=== PATIENT | male | born 1945 | race Caucasian/White ===

== ENCOUNTER 2018-11-21 15:04 | Inpatient (IN) ==
[2018-11-21] MEDS ORDERED: Ipratropium/Albuterol Neb 3 ML IH ONE (15:12)
[2018-11-21] MEDS ORDERED: 0.9 % Sodium Chloride 1,000 ML IVC ONE ×2 (15:12→15:56)
[2018-11-21] MEDS ORDERED: methylPREDNISolone 125 MG/2 ML VIAL IVP ONE (15:12)
[2018-11-21 15:40] LABS: Basophils % 0.1 %; Hematocrit 43.6 % (37.5-50.1); Hemoglobin 14.1 g/dL (12.9-16.9); Lymphocytes # 1.8 K/mcL (0.6-4.6); Lymphocytes % 9.8 %; Mean Corpuscular HGB Conc 32.3 g/dL (31.6-35.5); Mean Corpuscular Hemoglobin 29.1 pg (28.0-33.3); Mean Corpuscular Volume 90.1 fL (83.0-100.0); Mean Platelet Volume 10.6 fL (9.4-12.4); Monocytes # 1.1 K/mcL (0.0-1.3); Monocytes % 6.2 %; Neutrophils # 15.2 K/mcL (1.6-8.9); Platelet Count 349 K/mcL (140-400); Red Blood Count 4.84 M/mcL (4.19-5.50); Segmented Neutrophils % 82.9 %; White Blood Count 18.4 K/mcL (4.3-11.1)
[2018-11-21] MEDS ORDERED: Piperacillin/Tazobactam 3.375 GM in Water for inj. (sterile) 20 ML IVP ONE (15:55)
[2018-11-21] MEDS ORDERED: Azithromycin 500 MG in 0.9 % Sodium Chloride 250 ML IVPB ONE (15:55)
[2018-11-21] MEDS ORDERED: 0.9 % Sodium Chloride 500 ML IVC ONE (15:57)
[2018-11-21 16:02] LABS: BUN/Creatinine Ratio 16 (6-26); Blood Urea Nitrogen 19 mg/dL (8-23); Calcium 9.9 mg/dL (8.6-10.3); Carbon Dioxide 23 mEq/L (23-29); Chloride 102 mEq/L (98-107); Glucose 132 mg/dL (70-105); Osmolality,Calculated 288 (280-300); Potassium 3.3 mEq/L (3.5-5.1); Sodium 137 mEq/L (136-145); eGFR For African Americans > 60 (> 60); eGFR For Non-African Americans 59 (> 60)
[2018-11-21 16:03] LABS: Troponin I 0.03 ng/mL (< 0.04)
[2018-11-21] MEDS ORDERED: Ondansetron 4 MG/2 ML VIAL IVP PRN (16:50)
[2018-11-21] MEDS ORDERED: Naloxone 0.4 MG/ML INJ IVP PRN (16:50)
[2018-11-21] MEDS ORDERED: 0.9 % Sodium Chloride 1,000 ML IVC SCH (17:00)
[2018-11-21] MEDS ORDERED: *HR* LORazepam 2 MG/ML VIAL IVP PRN (17:23)
[2018-11-21] MEDS ORDERED: Acetaminophen 325 MG TABLET PO PRN (17:24)
[2018-11-21] MEDS: Famotidine 20 MG TABLET PO SCH (20:28)
[2018-11-21] MEDS: *HR* Heparin 5,000 UNIT/ML VIAL SQ SCH (20:28)
[2018-11-21] MEDS: Ipratropium/Albuterol Neb 3 ML IH SCH ×2 (20:40→23:58)
[2018-11-21] MEDS ORDERED: Acetaminophen IV 1,000 MG/100 ML INFUS..BTL IVPB ONE (20:55)
[2018-11-21] MEDS ORDERED: rOPINIRole 1 MG TABLET PO PRN (22:12)
[2018-11-21] MEDS: Piperacillin/Tazobactam 3.375 GM in 0.9 % Sodium Chloride Mini Bag 100 ML IVPB SCH (22:56)
[2018-11-22 00:43] LABS: Adenovirus Not Detected (Not Detect); Bordetella Pertussis Not Detected (Not Detect); Chlamydophila pneumoniae Not Detected (Not Detect); Coronavirus 229E Not Detected (Not Detect); Coronavirus HKU1 Not Detected (Not Detect); Coronavirus NL63 Not Detected (Not Detect); Coronavirus OC43 Not Detected (Not Detect); Human Metapneumovirus Not Detected (Not Detect); Human Rhinovirus/Enterovirus Not Detected (Not Detect); Influenza A Subtype 2009 H1 Not Detected (Not Detect); Influenza A Untypeable Not Detected (Not Detect); Influenza B Not Detected (Not Detect); Mycoplasma pneumoniae Not Detected (Not Detect); Parainfluenza Virus 1 Not Detected (Not Detect); Parainfluenza Virus 2 Not Detected (Not Detect); Parainfluenza Virus 3 Not Detected (Not Detect); Parainfluenza Virus 4 Not Detected (Not Detect); Respiratory Syncytial Virus Not Detected (Not Detect)
[2018-11-22 02:29] LABS: Basophils % 0.1 %; Hematocrit 34.8 % (37.5-50.1); Immature Granulocytes % 1.4 % (0-4); Lymphocytes # 0.2 K/mcL (0.6-4.6); Lymphocytes % 1.8 %; Mean Corpuscular HGB Conc 32.2 g/dL (31.6-35.5); Mean Corpuscular Hemoglobin 28.7 pg (28.0-33.3); Mean Corpuscular Volume 89.2 fL (83.0-100.0); Mean Platelet Volume 10.8 fL (9.4-12.4); Monocytes # 0.5 K/mcL (0.0-1.3); Monocytes % 3.8 %; Neutrophils # 11.6 K/mcL (1.6-8.9); Platelet Count 265 K/mcL (140-400); Red Cell Distribution Width 14.1 % (11.5-14.5); Segmented Neutrophils % 92.9 %; White Blood Count 12.5 K/mcL (4.3-11.1)
[2018-11-22 02:35] LABS: Hemoglobin 11.2 g/dL (12.9-16.9)
[2018-11-22 02:41] LABS: BUN/Creatinine Ratio 17 (6-26); Blood Urea Nitrogen 18 mg/dL (8-23); Calcium 8.7 mg/dL (8.6-10.3); Carbon Dioxide 20 mEq/L (23-29); Chloride 109 mEq/L (98-107); Glucose 239 mg/dL (70-105); Magnesium 1.5 mg/dL (1.6-2.6); Osmolality,Calculated 292 (280-300); Potassium 3.3 mEq/L (3.5-5.1); Sodium 136 mEq/L (136-145); eGFR For African Americans > 60 (> 60); eGFR For Non-African Americans > 60 (> 60)
[2018-11-22] MEDS ORDERED: Potassium Chloride 20 MEQ, Lidocaine 1% 2 ML in 0.9 % Sodium Chloride 250 ML IVPB ONE (03:14)
[2018-11-22] MEDS ORDERED: Magnesium Oxide 400 MG TABLET PO SCH ×2 (03:21→09:00)
[2018-11-22] MEDS: Ipratropium/Albuterol Neb 3 ML IH SCH ×2 (03:43→07:51)
[2018-11-22] MEDS: MethylPREDNISolone 40 MG/ML VIAL IVP SCH ×2 (04:54→15:06)
[2018-11-22] MEDS: *HR* Heparin 5,000 UNIT/ML VIAL SQ SCH (06:08)
[2018-11-22] MEDS ORDERED: Potassium Chloride Elixir 20 MEQ/15 ML UDC PO SCH (07:30)
[2018-11-22] MEDS: Piperacillin/Tazobactam 3.375 GM in 0.9 % Sodium Chloride Mini Bag 100 ML IVPB SCH ×2 (09:12→15:45)
[2018-11-22] MEDS: Famotidine 20 MG TABLET PO SCH (09:13)
[2018-11-22 09:20] LABS: Magnesium 1.7 mg/dL (1.6-2.6); Potassium 3.1 mEq/L (3.5-5.1)
[2018-11-22] MEDS: Apixaban 5 MG TABLET PO SCH ×2 (11:33→20:31)
[2018-11-22] MEDS: Levalbuterol Neb 0.63 MG/3 ML IH SCH ×2 (15:22→22:09)
[2018-11-22] MEDS: Divalproex (24 HR) 500 MG TABLET PO SCH (20:32)
[2018-11-22] MEDS: rOPINIRole 1 MG TABLET PO SCH (20:32)
[2018-11-22] MEDS: Finasteride 5 MG TABLET PO SCH (20:32)
[2018-11-22] MEDS: Budesonide/Formoterol 160/4.5 1 PUFF INH IH SCH (22:09)
[2018-11-23] MEDS: Piperacillin/Tazobactam 3.375 GM in 0.9 % Sodium Chloride Mini Bag 100 ML IVPB SCH ×5 (00:15→23:15)
[2018-11-23] MEDS: Levalbuterol Neb 0.63 MG/3 ML IH SCH ×4 (03:19→21:49)
[2018-11-23] MEDS: MethylPREDNISolone 40 MG/ML VIAL IVP SCH ×2 (03:44→20:52)
[2018-11-23] MEDS ORDERED: *HR* Metoprolol 5 MG/5 ML VIAL IVP ONE (04:28)
[2018-11-23 04:52] LABS: Basophils % 0.1 %; Eosinophils % 0.1 %; Hematocrit 36.4 % (37.5-50.1); Hemoglobin 11.9 g/dL (12.9-16.9); Immature Granulocytes % 0.6 % (0-4); Lymphocytes # 0.8 K/mcL (0.6-4.6); Lymphocytes % 5.6 %; Mean Corpuscular HGB Conc 32.7 g/dL (31.6-35.5); Mean Corpuscular Hemoglobin 29.5 pg (28.0-33.3); Mean Corpuscular Volume 90.3 fL (83.0-100.0); Mean Platelet Volume 10.9 fL (9.4-12.4); Monocytes # 0.6 K/mcL (0.0-1.3); Monocytes % 4.5 %; Neutrophils # 12.1 K/mcL (1.6-8.9); Platelet Count 313 K/mcL (140-400); Red Blood Count 4.03 M/mcL (4.19-5.50); Red Cell Distribution Width 14.3 % (11.5-14.5); Segmented Neutrophils % 89.1 %; White Blood Count 13.5 K/mcL (4.3-11.1)
[2018-11-23 05:11] LABS: BUN/Creatinine Ratio 16 (6-26); Blood Urea Nitrogen 14 mg/dL (8-23); Calcium 9.5 mg/dL (8.6-10.3); Carbon Dioxide 17 mEq/L (23-29); Chloride 109 mEq/L (98-107); Glucose 131 mg/dL (70-105); Osmolality,Calculated 286 (280-300); Potassium 3.7 mEq/L (3.5-5.1); Sodium 137 mEq/L (136-145); eGFR For African Americans > 60 (> 60); eGFR For Non-African Americans > 60 (> 60)
[2018-11-23 06:12] LABS: ABG Base Excess -8 mEq/L (-2 to 3); ABG HCO3 16 mEq/L (21-27); ABG Oxygen Saturation 93 % (95-98); ABG PCO2 26 mmHg (35-45); ABG PH 7.38 pH Units (7.32-7.45); ABG PO2 67 mmHg (85-104); ABG TCO2 17 mEq/L (20-26)
[2018-11-23] MEDS ORDERED: 0.9 % Sodium Chloride 500 ML IVC ONE ×2 (07:35→11:10)
[2018-11-23] MEDS: Apixaban 5 MG TABLET PO SCH ×2 (08:41→22:02)
[2018-11-23] MEDS ORDERED: Famotidine 20 MG TABLET PO SCH (09:00)
[2018-11-23] MEDS: Budesonide/Formoterol 160/4.5 1 PUFF INH IH SCH ×2 (10:55→21:49)
[2018-11-23] MEDS: *HR* LORazepam 2 MG/ML VIAL IVP PRN (12:12)
[2018-11-23] MEDS ORDERED: Haloperidol Lactate 5 MG/ML VIAL IM STA (14:23)
[2018-11-23] MEDS ORDERED: Ziprasidone 10 MG in Water for inj. (sterile) 0.5 ML IM ONE (15:18)
[2018-11-23] MEDS: Divalproex (24 HR) 500 MG TABLET PO SCH (22:01)
[2018-11-23] MEDS: traZODone 50 MG TABLET PO SCH (22:02)
[2018-11-23] MEDS: rOPINIRole 1 MG TABLET PO SCH (22:02)
[2018-11-23] MEDS: Finasteride 5 MG TABLET PO SCH (23:00)
[2018-11-24] MEDS: *HR* LORazepam 2 MG/ML VIAL IVP PRN (01:22)
[2018-11-24 01:52] LABS: ABG Base Excess -7 mEq/L (-2 to 3); ABG HCO3 24 mEq/L (21-27); ABG Oxygen Saturation 87 % (95-98); ABG PCO2 74 mmHg (35-45); ABG PH 7.12 pH Units (7.32-7.45); ABG PO2 73 mmHg (85-104); ABG TCO2 26 mEq/L (20-26)
[2018-11-24] MEDS ORDERED: Amiodarone Premix 150 MG/100 ML BAG IVPB ONE (02:40)
[2018-11-24] MEDS ORDERED: Amiodarone Premix 360 MG/200 ML BAG IVC ONE (02:40)
[2018-11-24] MEDS ORDERED: *HR* Midazolam HCl 2 MG/2 ML VIAL IVP ONE (02:46)
[2018-11-24] MEDS ORDERED: *HR* Etomidate 40 MG/20 ML VIAL IVP ONE ×2 (02:46→09:08)
[2018-11-24] MEDS ORDERED: D5% in Water 250 ML ONE (03:09)
[2018-11-24] MEDS ORDERED: *HR* Norepinephrine 4 MG/4 ML VIAL IVC ONE (03:09)
[2018-11-24 03:20] LABS: Basophils % 0.1 %; Eosinophils % 0.1 %; Hematocrit 42.2 % (37.5-50.1); Hemoglobin 13.2 g/dL (12.9-16.9); Immature Granulocytes % 0.8 % (0-4); Lymphocytes # 0.3 K/mcL (0.6-4.6); Lymphocytes % 1.9 %; Mean Corpuscular HGB Conc 31.3 g/dL (31.6-35.5); Mean Corpuscular Hemoglobin 28.8 pg (28.0-33.3); Mean Corpuscular Volume 92.1 fL (83.0-100.0); Mean Platelet Volume 10.7 fL (9.4-12.4); Monocytes # 0.7 K/mcL (0.0-1.3); Neutrophils # 16.6 K/mcL (1.6-8.9); Nucleated Red Blood Cells 0.1 /100 WBC (0); Platelet Count 432 K/mcL (140-400); Red Blood Count 4.58 M/mcL (4.19-5.50); Red Cell Distribution Width 14.7 % (11.5-14.5); Segmented Neutrophils % 93.1 %; White Blood Count 17.8 K/mcL (4.3-11.1)
[2018-11-24] MEDS ORDERED: 0.9 % Sodium Chloride 500 ML ONE (03:20)
[2018-11-24 03:53] LABS: BUN/Creatinine Ratio 16 (6-26); Blood Urea Nitrogen 17 mg/dL (8-23); Calcium 9.2 mg/dL (8.6-10.3); Carbon Dioxide 21 mEq/L (23-29); Chloride 112 mEq/L (98-107); Glucose 160 mg/dL (70-105); Osmolality,Calculated 293 (280-300); Potassium 4.7 mEq/L (3.5-5.1); Sodium 139 mEq/L (136-145); eGFR For African Americans > 60 (> 60); eGFR For Non-African Americans > 60 (> 60)
[2018-11-24 04:23] LABS: ABG Base Excess -7 mEq/L (-2 to 3); ABG HCO3 23 mEq/L (21-27); ABG Oxygen Saturation 88 % (95-98); ABG PCO2 58 mmHg (35-45); ABG PH 7.19 pH Units (7.32-7.45); ABG PO2 68 mmHg (85-104); ABG TCO2 24 mEq/L (20-26); Blood Gas VT 450 cc
[2018-11-24] MEDS: Levalbuterol Neb 0.63 MG/3 ML IH SCH (04:29)
[2018-11-24] MEDS: MethylPREDNISolone 40 MG/ML VIAL IVP SCH ×2 (06:11→15:18)
[2018-11-24] MEDS: Ipratropium/Albuterol Neb 3 ML IH SCH ×6 (07:47→14:02)
[2018-11-24] MEDS: Piperacillin/Tazobactam 3.375 GM in 0.9 % Sodium Chloride Mini Bag 100 ML IVPB SCH ×3 (08:36→23:49)
[2018-11-24] MEDS: Norepinephrine 4 MG in 0.9 % Sodium Chloride 250 ML IVC SCH (09:00)
[2018-11-24 09:01] LABS: ABG Base Excess -5 mEq/L (-2 to 3); ABG HCO3 24 mEq/L (21-27); ABG Oxygen Saturation 82 % (95-98); ABG PCO2 62 mmHg (35-45); ABG PO2 58 mmHg (85-104); ABG TCO2 26 mEq/L (20-26); Blood Gas Modality AF; Blood Gas VT 450 cc
[2018-11-24] MEDS ORDERED: *HR* Rocuronium Bromide 50 MG/5 ML VIAL IVP ONE (09:02)
[2018-11-24 09:06] LABS: INR 1.3; Prothrombin Time 14.4 Seconds (9.4-12.1)
[2018-11-24] MEDS ORDERED: *HR* Midazolam HCl 2 MG/2 ML VIAL IV ONE (09:08)
[2018-11-24] MEDS: Cisatracurium 200 MG in 0.9 % Sodium Chloride 180 ML IVC SCH (09:56)
[2018-11-24] MEDS ORDERED: Artificial Tears SOLN 15 ML BOTTLE BOTH EYES PRN (09:56)
[2018-11-24] MEDS: FentaNYL (PF) 1,000 MCG in 0.9 % Sodium Chloride 80 ML IVC SCH ×2 (09:56→22:07)
[2018-11-24] MEDS ORDERED: Perflutren Lipid Microsphere 1.3 ML in 0.9 % Sodium Chloride 8.7 ML IVP ONE (09:59)
[2018-11-24] MEDS: Apixaban 5 MG TABLET PO SCH ×2 (10:13→10:38)
[2018-11-24] MEDS: Artificial Tears SOLN 15 ML BOTTLE BOTH EYES SCH ×4 (10:13→23:49)
[2018-11-24] MEDS: Docusate Oral Soln 100 MG/10 ML UDC GTUBE SCH ×2 (10:14→20:03)
[2018-11-24] MEDS: Amiodarone Premix 360 MG/200 ML BAG IVC SCH ×3 (10:15→20:12)
[2018-11-24] MEDS: Budesonide/Formoterol 160/4.5 1 PUFF INH IH SCH ×2 (10:32→19:43)
[2018-11-24 10:33] LABS: Bilirubin,Urine Negative (Negative); Blood,Urine Trace-lysed (Negative); Clarity,Urine Slightly Cloudy (Clear); Color,Urine Yellow (Yellow); Glucose,Urine (UA) Normal (Normal); Ketones,Urine Negative (Negative); Leukocyte Esterase,Urine Negative (Negative); Nitrite,Urine Negative (Negative); PH,Urine 5.5 pH Units (5.0-8.0); Protein,Urine 100 mg/dL (Neg-Trace); Specific Gravity,Urine >= 1.030 (1.010-1.025); Urobilinogen,Urine Normal (Normal)
[2018-11-24 10:41] LABS: Squamous Epithelial Cell,Urine Many per lpf (None-Few)
[2018-11-24 10:51] LABS: RBC,Urine 0-3 per hpf (0-3)
[2018-11-24 10:52] LABS: Bacteria,Urine Few per hpf (None-Few); Granular Casts,Urine Few per lpf (None Seen); Hyaline Casts,Urine Few per lpf (None-Few)
[2018-11-24 11:12] LABS: ABG Base Excess -4 mEq/L (-2 to 3); ABG HCO3 25 mEq/L (21-27); ABG Oxygen Saturation 90 % (95-98); ABG PCO2 59 mmHg (35-45); ABG PH 7.23 pH Units (7.32-7.45); ABG PO2 72 mmHg (85-104); ABG TCO2 26 mEq/L (20-26); Blood Gas Modality AF; Blood Gas VT 450 cc
[2018-11-24] MEDS ORDERED: *HR* Heparin 5,000 UNIT/ML VIAL IVP PRN ×2 (11:36)
[2018-11-24] MEDS: Heparin 25,000 UNIT/250 ML D5W 25,000 UNIT/250 ML IV.SOLN IVC SCH (12:42)
[2018-11-24] MEDS: Phenylephrine 10 MG in 0.9 % Sodium Chloride 250 ML IVC SCH ×2 (12:48→15:50)
[2018-11-24] MEDS: Chlorhexidine Rinse 15 ML MOUTHWASH MM SCH ×2 (13:14→20:03)
[2018-11-24 13:58] LABS: ABG Base Excess -4 mEq/L (-2 to 3); ABG HCO3 24 mEq/L (21-27); ABG Oxygen Saturation 88 % (95-98); ABG PCO2 58 mmHg (35-45); ABG PH 7.23 pH Units (7.32-7.45); ABG PO2 65 mmHg (85-104); ABG TCO2 26 mEq/L (20-26); Blood Gas Modality AF; Blood Gas VT 450 cc
[2018-11-24] MEDS ORDERED: Levalbuterol Neb 1.25 MG/3 ML ONE (15:04)
[2018-11-24] MEDS: Levalbuterol Neb 1.25 MG/3 ML IH SCH ×5 (15:08→23:05)
[2018-11-24] MEDS ORDERED: *HR* Digoxin 0.5 MG/2 ML AMPUL IVP ONE (15:30)
[2018-11-24 17:15] LABS: ABG Base Excess -5 mEq/L (-2 to 3); ABG HCO3 24 mEq/L (21-27); ABG Oxygen Saturation 86 % (95-98); ABG PCO2 66 mmHg (35-45); ABG PH 7.18 pH Units (7.32-7.45); ABG PO2 66 mmHg (85-104); ABG TCO2 26 mEq/L (20-26); Blood Gas Modality AF; Blood Gas VT 450 cc
[2018-11-24] MEDS: Pantoprazole 40 MG VIAL IVP SCH (17:52)
[2018-11-24 18:04] LABS: ABG Base Excess -4 mEq/L (-2 to 3); ABG HCO3 25 mEq/L (21-27); ABG Oxygen Saturation 86 % (95-98); ABG PCO2 61 mmHg (35-45); ABG PH 7.22 pH Units (7.32-7.45); ABG PO2 63 mmHg (85-104); ABG TCO2 27 mEq/L (20-26); Blood Gas Modality AF; Blood Gas VT 450 cc
[2018-11-24] MEDS: Finasteride 5 MG TABLET PO SCH (20:05)
[2018-11-24] MEDS: rOPINIRole 1 MG TABLET PO SCH (20:05)
[2018-11-24] MEDS: traZODone 50 MG TABLET PO SCH (20:06)
[2018-11-24] MEDS: Divalproex (24 HR) 500 MG TABLET PO SCH (20:07)
[2018-11-24] MEDS: *HR* Metoprolol 5 MG/5 ML VIAL IVP SCH (20:08)
[2018-11-24 21:33] LABS: Hematocrit 36.3 % (37.5-50.1)
[2018-11-24 21:34] LABS: Hemoglobin 11.1 g/dL (12.9-16.9)
[2018-11-24] MEDS ORDERED: *HR* Digoxin 0.5 MG/2 ML AMPUL IVP SCH (23:30)
[2018-11-25] MEDS: Levalbuterol Neb 1.25 MG/3 ML IH SCH ×10 (01:08→23:43)
[2018-11-25 03:49] LABS: Basophils % 0.1 %; Hematocrit 35.3 % (37.5-50.1); Hemoglobin 10.7 g/dL (12.9-16.9); Immature Granulocytes % 0.2 % (0-4); Lymphocytes # 0.3 K/mcL (0.6-4.6); Lymphocytes % 3.3 %; Mean Corpuscular HGB Conc 30.3 g/dL (31.6-35.5); Mean Corpuscular Hemoglobin 29.1 pg (28.0-33.3); Mean Corpuscular Volume 95.9 fL (83.0-100.0); Mean Platelet Volume 10.4 fL (9.4-12.4); Monocytes # 0.4 K/mcL (0.0-1.3); Platelet Count 283 K/mcL (140-400); Red Blood Count 3.68 M/mcL (4.19-5.50); Segmented Neutrophils % 91.4 %; White Blood Count 8.8 K/mcL (4.3-11.1)
[2018-11-25] MEDS: Artificial Tears SOLN 15 ML BOTTLE BOTH EYES SCH ×6 (03:50→23:38)
[2018-11-25] MEDS: MethylPREDNISolone 40 MG/ML VIAL IVP SCH ×2 (03:50→16:47)
[2018-11-25 04:08] LABS: BUN/Creatinine Ratio 18 (6-26); Blood Urea Nitrogen 24 mg/dL (8-23); Calcium 8.9 mg/dL (8.6-10.3); Carbon Dioxide 21 mEq/L (23-29); Chloride 111 mEq/L (98-107); Glucose 143 mg/dL (70-105); Osmolality,Calculated 291 (280-300); Phosphorous 4.7 mg/dL (2.7-4.5); Potassium 4.8 mEq/L (3.5-5.1); Sodium 137 mEq/L (136-145); eGFR For African Americans > 60 (> 60); eGFR For Non-African Americans 54 (> 60)
[2018-11-25 05:03] LABS: ABG Base Excess -3 mEq/L (-2 to 3); ABG HCO3 24 mEq/L (21-27); ABG Oxygen Saturation 95 % (95-98); ABG PCO2 52 mmHg (35-45); ABG PH 7.28 pH Units (7.32-7.45); ABG PO2 84 mmHg (85-104); ABG TCO2 26 mEq/L (20-26); Blood Gas Modality AF; Blood Gas VT 450 cc
[2018-11-25] MEDS: Pantoprazole 40 MG VIAL IVP SCH ×2 (05:11→17:52)
[2018-11-25] MEDS: Amiodarone Premix 360 MG/200 ML BAG IVC SCH (06:18)
[2018-11-25] MEDS: Budesonide/Formoterol 160/4.5 1 PUFF INH IH SCH ×2 (07:06→19:45)
[2018-11-25] MEDS: Piperacillin/Tazobactam 3.375 GM in 0.9 % Sodium Chloride Mini Bag 100 ML IVPB SCH ×3 (08:11→23:37)
[2018-11-25] MEDS: Docusate Oral Soln 100 MG/10 ML UDC GTUBE SCH ×2 (08:12→19:35)
[2018-11-25] MEDS: Chlorhexidine Rinse 15 ML MOUTHWASH MM SCH ×2 (08:12→19:35)
[2018-11-25] MEDS: *HR* Metoprolol 5 MG/5 ML VIAL IVP SCH ×3 (08:23→23:38)
[2018-11-25] MEDS ORDERED: Haloperidol Lactate 5 MG/ML VIAL IVP ONE (09:19)
[2018-11-25] MEDS: Norepinephrine 4 MG in 0.9 % Sodium Chloride 250 ML IVC SCH (10:08)
[2018-11-25 11:40] LABS: Hematocrit 34.5 % (37.5-50.1); Hemoglobin 10.6 g/dL (12.9-16.9)
[2018-11-25] MEDS: Cisatracurium 200 MG in 0.9 % Sodium Chloride 180 ML IVC SCH ×2 (13:31→14:37)
[2018-11-25] MEDS: Valproic Acid INJ 250 MG in 0.9 % Sodium Chloride 100 ML IVPB SCH ×2 (14:26→19:37)
[2018-11-25 14:41] LABS: ABG Base Excess -4 mEq/L (-2 to 3); ABG HCO3 24 mEq/L (21-27); ABG Oxygen Saturation 91 % (95-98); ABG PCO2 54 mmHg (35-45); ABG PH 7.26 pH Units (7.32-7.45); ABG PO2 71 mmHg (85-104); ABG TCO2 26 mEq/L (20-26); Blood Gas Modality AF; Blood Gas VT 450 cc
[2018-11-25] MEDS: Heparin 25,000 UNIT/250 ML D5W 25,000 UNIT/250 ML IV.SOLN IVC SCH (16:16)
[2018-11-25] MEDS: FentaNYL (PF) 1,000 MCG in 0.9 % Sodium Chloride 80 ML IVC SCH (16:24)
[2018-11-25 17:10] LABS: Valproate Free <7 ug/mL (7-23); Valproate Total 29 ug/mL (50-125)
[2018-11-25 17:18] LABS: Hematocrit 33.4 % (37.5-50.1); Hemoglobin 10.5 g/dL (12.9-16.9)
[2018-11-25 19:52] LABS: Alanine Aminotransferase 5 Units/L (7-52); Albumin 2.4 g/dL (3.5-5.7); Albumin/Globulin Ratio 0.8 (1.1-2.2); Alkaline Phosphatase 44 Units/L (34-104); Aspartate Amino Transferase 4 Units/L (13-39); BUN/Creatinine Ratio 21 (6-26); Bilirubin,Total 0.2 mg/dL (0.3-1.0); Blood Urea Nitrogen 28 mg/dL (8-23); Calcium 9.1 mg/dL (8.6-10.3); Carbon Dioxide 23 mEq/L (23-29); Chloride 111 mEq/L (98-107); Glucose 124 mg/dL (70-105); Osmolality,Calculated 297 (280-300); Potassium 4.5 mEq/L (3.5-5.1); Sodium 140 mEq/L (136-145); Total Protein 5.4 g/dL (6.4-8.9); eGFR For African Americans > 60 (> 60); eGFR For Non-African Americans 52 (> 60)
[2018-11-26] MEDS: FentaNYL (PF) 1,000 MCG in 0.9 % Sodium Chloride 80 ML IVC SCH ×3 (01:45→22:00)
[2018-11-26] MEDS: Valproic Acid INJ 250 MG in 0.9 % Sodium Chloride 100 ML IVPB SCH ×4 (02:12→20:48)
[2018-11-26] MEDS: Artificial Tears SOLN 15 ML BOTTLE BOTH EYES SCH ×5 (03:46→20:48)
[2018-11-26] MEDS: MethylPREDNISolone 40 MG/ML VIAL IVP SCH ×2 (03:46→16:09)
[2018-11-26 03:51] LABS: Basophils % 0.1 %; Hematocrit 34.9 % (37.5-50.1); Hemoglobin 10.9 g/dL (12.9-16.9); Immature Granulocytes % 0.4 % (0-4); Lymphocytes # 0.3 K/mcL (0.6-4.6); Lymphocytes % 2.5 %; Mean Corpuscular HGB Conc 31.2 g/dL (31.6-35.5); Mean Corpuscular Hemoglobin 29.1 pg (28.0-33.3); Mean Corpuscular Volume 93.1 fL (83.0-100.0); Mean Platelet Volume 10.4 fL (9.4-12.4); Monocytes # 0.5 K/mcL (0.0-1.3); Monocytes % 4.4 %; Neutrophils # 9.4 K/mcL (1.6-8.9); Platelet Count 311 K/mcL (140-400); Red Blood Count 3.75 M/mcL (4.19-5.50); Red Cell Distribution Width 15.1 % (11.5-14.5); Segmented Neutrophils % 92.6 %; White Blood Count 10.2 K/mcL (4.3-11.1)
[2018-11-26] MEDS: Levalbuterol Neb 1.25 MG/3 ML IH SCH ×6 (03:52→23:39)
[2018-11-26 04:10] LABS: Albumin 2.5 g/dL (3.5-5.7); Albumin/Globulin Ratio 0.8 (1.1-2.2); Bilirubin,Total 0.2 mg/dL (0.3-1.0); Calcium 9.1 mg/dL (8.6-10.3); Globulin 3.1 g/dL (2.4-3.5); Potassium 4.7 mEq/L (3.5-5.1); Total Protein 5.6 g/dL (6.4-8.9)
[2018-11-26] MEDS: *HR* Metoprolol 5 MG/5 ML VIAL IVP SCH ×3 (04:51→17:39)
[2018-11-26] MEDS: Pantoprazole 40 MG VIAL IVP SCH ×2 (04:51→17:39)
[2018-11-26 05:26] LABS: ABG Base Excess -2 mEq/L (-2 to 3); ABG HCO3 26 mEq/L (21-27); ABG Oxygen Saturation 91 % (95-98); ABG PCO2 57 mmHg (35-45); ABG PH 7.26 pH Units (7.32-7.45); ABG PO2 71 mmHg (85-104); ABG TCO2 28 mEq/L (20-26); Blood Gas Modality AF; Blood Gas VT 450 cc
[2018-11-26] MEDS: Budesonide/Formoterol 160/4.5 1 PUFF INH IH SCH ×2 (07:11→19:36)
[2018-11-26] MEDS: Chlorhexidine Rinse 15 ML MOUTHWASH MM SCH ×2 (08:00→20:49)
[2018-11-26] MEDS: Piperacillin/Tazobactam 3.375 GM in 0.9 % Sodium Chloride Mini Bag 100 ML IVPB SCH ×2 (08:00→16:09)
[2018-11-26] MEDS: Docusate Oral Soln 100 MG/10 ML UDC GTUBE SCH ×2 (08:00→20:49)
[2018-11-26] MEDS ORDERED: Aminoglycoside Consult 1 EACH MC ONE (08:17)
[2018-11-26] MEDS: Heparin 25,000 UNIT/250 ML D5W 25,000 UNIT/250 ML IV.SOLN IVC SCH (13:59)
[2018-11-26] MEDS: Cisatracurium 200 MG in 0.9 % Sodium Chloride 180 ML IVC SCH (16:12)
[2018-11-26] MEDS: Norepinephrine 4 MG in 0.9 % Sodium Chloride 250 ML IVC SCH (16:13)
[2018-11-26] MEDS ORDERED: Furosemide 20 MG/2 ML VIAL IVP ONE (18:02)
[2018-11-27] MEDS ORDERED: Piperacillin/Tazobactam 3.375 GM VIAL ONE (00:33)
[2018-11-27] MEDS: Artificial Tears SOLN 15 ML BOTTLE BOTH EYES SCH ×7 (00:35→23:37)
[2018-11-27] MEDS: *HR* Metoprolol 5 MG/5 ML VIAL IVP SCH ×5 (00:35→23:33)
[2018-11-27] MEDS: Piperacillin/Tazobactam 3.375 GM in 0.9 % Sodium Chloride Mini Bag 100 ML IVPB SCH ×4 (00:35→23:33)
[2018-11-27] MEDS: Valproic Acid INJ 250 MG in 0.9 % Sodium Chloride 100 ML IVPB SCH ×4 (01:13→21:15)
[2018-11-27] MEDS: FentaNYL (PF) 1,000 MCG in 0.9 % Sodium Chloride 80 ML IVC SCH ×3 (03:06→15:06)
[2018-11-27] MEDS: Levalbuterol Neb 1.25 MG/3 ML IH SCH ×6 (03:48→23:33)
[2018-11-27 04:34] LABS: Basophils % 0.1 %; Hematocrit 34.2 % (37.5-50.1); Hemoglobin 10.6 g/dL (12.9-16.9); Immature Granulocytes % 0.8 % (0-4); Lymphocytes # 0.4 K/mcL (0.6-4.6); Mean Corpuscular Hemoglobin 28.6 pg (28.0-33.3); Mean Corpuscular Volume 92.4 fL (83.0-100.0); Mean Platelet Volume 10.6 fL (9.4-12.4); Monocytes # 0.5 K/mcL (0.0-1.3); Monocytes % 4.6 %; Neutrophils # 9.1 K/mcL (1.6-8.9); Platelet Count 333 K/mcL (140-400); Red Cell Distribution Width 15.4 % (11.5-14.5); Segmented Neutrophils % 90.5 %; White Blood Count 10.1 K/mcL (4.3-11.1)
[2018-11-27 04:49] LABS: Alanine Aminotransferase 4 Units/L (7-52); Albumin 2.8 g/dL (3.5-5.7); Alkaline Phosphatase 37 Units/L (34-104); Aspartate Amino Transferase 6 Units/L (13-39); BUN/Creatinine Ratio 26 (6-26); Bilirubin,Total 0.2 mg/dL (0.3-1.0); Blood Urea Nitrogen 34 mg/dL (8-23); Calcium 9.1 mg/dL (8.6-10.3); Carbon Dioxide 26 mEq/L (23-29); Chloride 110 mEq/L (98-107); Globulin 2.9 g/dL (2.4-3.5); Glucose 89 mg/dL (70-105); Magnesium 2.3 mg/dL (1.6-2.6); Osmolality,Calculated 301 (280-300); Potassium 4.6 mEq/L (3.5-5.1); Sodium 142 mEq/L (136-145); Total Protein 5.7 g/dL (6.4-8.9); Uric Acid 4.4 mg/dL (2.3-7.6); eGFR For African Americans > 60 (> 60); eGFR For Non-African Americans 54 (> 60)
[2018-11-27] MEDS: MethylPREDNISolone 40 MG/ML VIAL IVP SCH ×3 (04:52→16:50)
[2018-11-27 05:04] LABS: ABG Base Excess 0 mEq/L (-2 to 3); ABG HCO3 27 mEq/L (21-27); ABG Oxygen Saturation 92 % (95-98); ABG PCO2 52 mmHg (35-45); ABG PH 7.32 pH Units (7.32-7.45); ABG PO2 70 mmHg (85-104); ABG TCO2 28 mEq/L (20-26); Blood Gas Modality AF; Blood Gas VT 450 cc
[2018-11-27] MEDS: Pantoprazole 40 MG VIAL IVP SCH ×2 (05:13→17:42)
[2018-11-27] MEDS: Docusate Oral Soln 100 MG/10 ML UDC GTUBE SCH ×2 (07:27→20:24)
[2018-11-27] MEDS: Chlorhexidine Rinse 15 ML MOUTHWASH MM SCH ×2 (07:27→20:24)
[2018-11-27] MEDS: Budesonide/Formoterol 160/4.5 1 PUFF INH IH SCH ×2 (07:36→19:39)
[2018-11-27] MEDS ORDERED: Furosemide 20 MG/2 ML VIAL IVP SCH (09:30)
[2018-11-27] MEDS ORDERED: levoFLOXacin 750 MG/150 ML 750 MG/150 ML BAG IVPB SCH (09:45)
[2018-11-27] MEDS: Albuterol 2.5 MG/3 ML NEBULIZER IH PRN ×5 (09:49→22:26)
[2018-11-27] MEDS ORDERED: *HR* Metoprolol 5 MG/5 ML VIAL IVP ONE ×2 (10:05→10:28)
[2018-11-27] MEDS ORDERED: Amiodarone Premix 150 MG/100 ML BAG IVPB ONE (12:26)
[2018-11-27] MEDS ORDERED: Amiodarone Premix 360 MG/200 ML BAG IVC ONE (12:26)
[2018-11-27] MEDS: Norepinephrine 4 MG in 0.9 % Sodium Chloride 250 ML IVC SCH (15:14)
[2018-11-27] MEDS: Cisatracurium 200 MG in 0.9 % Sodium Chloride 180 ML IVC SCH (15:15)
[2018-11-27] MEDS: Heparin 25,000 UNIT/250 ML D5W 25,000 UNIT/250 ML IV.SOLN IVC SCH ×2 (19:06→19:58)
[2018-11-27] MEDS: Amiodarone Premix 360 MG/200 ML BAG IVC SCH (19:06)
[2018-11-27] MEDS: *HR* Rocuronium Bromide 50 MG/5 ML VIAL IVP PRN (21:54)
[2018-11-27] MEDS: Midazolam HCl 100 MG in 0.9 % Sodium Chloride 80 ML IVC SCH (23:04)
[2018-11-28] MEDS: Albuterol 2.5 MG/3 ML NEBULIZER IH PRN ×8 (00:29→09:31)
[2018-11-28] MEDS: *HR* Rocuronium Bromide 50 MG/5 ML VIAL IVP PRN ×2 (00:40→10:34)
[2018-11-28] MEDS: MethylPREDNISolone 40 MG/ML VIAL IVP SCH ×3 (00:40→17:38)
[2018-11-28] MEDS: Valproic Acid INJ 250 MG in 0.9 % Sodium Chloride 100 ML IVPB SCH ×4 (02:19→20:16)
[2018-11-28] MEDS: Levalbuterol Neb 1.25 MG/3 ML IH SCH ×6 (03:44→23:33)
[2018-11-28] MEDS: Artificial Tears SOLN 15 ML BOTTLE BOTH EYES SCH ×6 (04:08→23:34)
[2018-11-28 04:20] LABS: ABG Base Excess 0 mEq/L (-2 to 3); ABG HCO3 28 mEq/L (21-27); ABG Oxygen Saturation 89 % (95-98); ABG PCO2 65 mmHg (35-45); ABG PH 7.25 pH Units (7.32-7.45); ABG PO2 69 mmHg (85-104); ABG TCO2 30 mEq/L (20-26); Blood Gas Modality ASSIST CONTROL; Blood Gas VT 450 cc
[2018-11-28 04:28] LABS: Bilirubin,Urine Negative (Negative); Blood,Urine Negative (Negative); Clarity,Urine Clear (Clear); Color,Urine Yellow (Yellow); Glucose,Urine (UA) Normal (Normal); Ketones,Urine Negative (Negative); Leukocyte Esterase,Urine Negative (Negative); Nitrite,Urine Negative (Negative); PH,Urine 5.5 pH Units (5.0-8.0); Protein,Urine Trace mg/dL (Neg-Trace); Specific Gravity,Urine 1.027 (1.010-1.025); Urobilinogen,Urine Normal (Normal)
[2018-11-28 04:30] LABS: Basophils % 0.3 %; Hematocrit 35.8 % (37.5-50.1); Hemoglobin 10.7 g/dL (12.9-16.9); Immature Granulocytes % 2.2 % (0-4); Lymphocytes # 0.2 K/mcL (0.6-4.6); Mean Corpuscular HGB Conc 29.9 g/dL (31.6-35.5); Mean Corpuscular Hemoglobin 28.8 pg (28.0-33.3); Mean Corpuscular Volume 96.5 fL (83.0-100.0); Mean Platelet Volume 10.5 fL (9.4-12.4); Monocytes # 0.2 K/mcL (0.0-1.3); Monocytes % 3.1 %; Platelet Count 317 K/mcL (140-400); Red Blood Count 3.71 M/mcL (4.19-5.50); Red Cell Distribution Width 15.6 % (11.5-14.5); Segmented Neutrophils % 92.4 %; White Blood Count 7.6 K/mcL (4.3-11.1)
[2018-11-28 04:45] LABS: Albumin 2.8 g/dL (3.5-5.7); Bilirubin,Total 0.2 mg/dL (0.3-1.0); Calcium 9.2 mg/dL (8.6-10.3); Globulin 2.9 g/dL (2.4-3.5); Potassium 4.5 mEq/L (3.5-5.1); Total Protein 5.7 g/dL (6.4-8.9)
[2018-11-28 05:03] LABS: Platelet Estimate Normal (Normal); Poikilocytosis 1+ (Not Present); Polychromasia 1+ (Not Present)
[2018-11-28] MEDS: Amiodarone Premix 360 MG/200 ML BAG IVC SCH ×2 (05:14→19:17)
[2018-11-28] MEDS: *HR* Metoprolol 5 MG/5 ML VIAL IVP SCH ×4 (05:46→23:32)
[2018-11-28] MEDS: Doxycycline 100 MG in 0.9 % Sodium Chloride Mini Bag 100 ML IVPB SCH ×2 (05:46→17:47)
[2018-11-28] MEDS: Pantoprazole 40 MG VIAL IVP SCH ×2 (05:46→17:47)
[2018-11-28] MEDS: Budesonide/Formoterol 160/4.5 1 PUFF INH IH SCH ×2 (07:29→19:40)
[2018-11-28] MEDS: Docusate Oral Soln 100 MG/10 ML UDC GTUBE SCH ×2 (09:05→20:14)
[2018-11-28] MEDS: Chlorhexidine Rinse 15 ML MOUTHWASH MM SCH ×2 (09:05→20:14)
[2018-11-28] MEDS: Piperacillin/Tazobactam 3.375 GM in 0.9 % Sodium Chloride Mini Bag 100 ML IVPB SCH ×3 (09:06→23:33)
[2018-11-28] MEDS: Cisatracurium 200 MG in 0.9 % Sodium Chloride 180 ML IVC SCH (09:06)
[2018-11-28] MEDS: Norepinephrine 4 MG in 0.9 % Sodium Chloride 250 ML IVC SCH (09:07)
[2018-11-28] MEDS ORDERED: *HR* Rocuronium Bromide 50 MG/5 ML VIAL IVC ONE (09:25)
[2018-11-28] MEDS: Midazolam HCl 100 MG in 0.9 % Sodium Chloride 80 ML IVC SCH ×2 (09:32→20:17)
[2018-11-28 13:28] LABS: Source of Body Fluid LEFT LOWER LOBE LUNG
[2018-11-28 15:48] LABS: Appearance of Body Fluid Cloudy (Clear); Source of Body Fluid RIGHT LOWER LOBE LUN; Volume of Body Fluid 15 mL; Volume of Body Fluid 20 mL
[2018-11-29] MEDS: MethylPREDNISolone 40 MG/ML VIAL IVP SCH ×3 (01:21→15:57)
[2018-11-29] MEDS: Valproic Acid INJ 250 MG in 0.9 % Sodium Chloride 100 ML IVPB SCH ×4 (01:21→21:06)
[2018-11-29] MEDS: Artificial Tears SOLN 15 ML BOTTLE BOTH EYES SCH ×5 (03:29→21:02)
[2018-11-29] MEDS: Levalbuterol Neb 1.25 MG/3 ML IH SCH ×5 (03:30→19:18)
[2018-11-29 04:43] LABS: Basophils % 0.4 %; Hematocrit 35.1 % (37.5-50.1); Hemoglobin 11.2 g/dL (12.9-16.9); Lymphocytes # 0.2 K/mcL (0.6-4.6); Lymphocytes % 3.9 %; Mean Corpuscular HGB Conc 31.9 g/dL (31.6-35.5); Mean Corpuscular Volume 90.9 fL (83.0-100.0); Mean Platelet Volume 10.6 fL (9.4-12.4); Monocytes # 0.3 K/mcL (0.0-1.3); Neutrophils # 4.7 K/mcL (1.6-8.9); Platelet Count 326 K/mcL (140-400); Red Blood Count 3.86 M/mcL (4.19-5.50); Red Cell Distribution Width 15.6 % (11.5-14.5); Segmented Neutrophils % 87.7 %; White Blood Count 5.4 K/mcL (4.3-11.1)
[2018-11-29] MEDS ORDERED: 0.9 % Sodium Chloride 500 ML ONE (04:51)
[2018-11-29 04:54] LABS: ABG Base Excess 2 mEq/L (-2 to 3); ABG HCO3 29 mEq/L (21-27); ABG Oxygen Saturation 93 % (95-98); ABG PCO2 55 mmHg (35-45); ABG PH 7.33 pH Units (7.32-7.45); ABG PO2 75 mmHg (85-104); ABG TCO2 30 mEq/L (20-26); Blood Gas Modality AF; Blood Gas VT 450 cc
[2018-11-29 04:59] LABS: BUN/Creatinine Ratio 40 (6-26); Blood Urea Nitrogen 51 mg/dL (8-23); Calcium 9.3 mg/dL (8.6-10.3); Carbon Dioxide 27 mEq/L (23-29); Chloride 108 mEq/L (98-107); Glucose 119 mg/dL (70-105); Osmolality,Calculated 307 (280-300); Potassium 4.4 mEq/L (3.5-5.1); Sodium 141 mEq/L (136-145); eGFR For African Americans > 60 (> 60); eGFR For Non-African Americans 56 (> 60)
[2018-11-29] MEDS: *HR* Metoprolol 5 MG/5 ML VIAL IVP SCH ×3 (05:13→17:13)
[2018-11-29] MEDS: Pantoprazole 40 MG VIAL IVP SCH ×2 (05:13→17:13)
[2018-11-29] MEDS: Doxycycline 100 MG in 0.9 % Sodium Chloride Mini Bag 100 ML IVPB SCH ×2 (05:13→17:19)
[2018-11-29] MEDS ORDERED: Dexmedetomidine HCl 0 MCG/0 ML MLS IVC ONE (05:15)
[2018-11-29] MEDS: Midazolam HCl 100 MG in 0.9 % Sodium Chloride 80 ML IVC SCH (05:53)
[2018-11-29] MEDS: Heparin 25,000 UNIT/250 ML D5W 25,000 UNIT/250 ML IV.SOLN IVC SCH (07:04)
[2018-11-29] MEDS: Budesonide/Formoterol 160/4.5 1 PUFF INH IH SCH ×2 (07:16→19:18)
[2018-11-29] MEDS: Amiodarone Premix 360 MG/200 ML BAG IVC SCH ×2 (07:45→19:29)
[2018-11-29] MEDS: Piperacillin/Tazobactam 3.375 GM in 0.9 % Sodium Chloride Mini Bag 100 ML IVPB SCH ×2 (08:34→15:57)
[2018-11-29] MEDS: Docusate Oral Soln 100 MG/10 ML UDC GTUBE SCH ×2 (08:38→21:07)
[2018-11-29] MEDS: Chlorhexidine Rinse 15 ML MOUTHWASH MM SCH ×2 (08:39→21:05)
[2018-11-29] MEDS: Norepinephrine 4 MG in 0.9 % Sodium Chloride 250 ML IVC SCH (08:40)
[2018-11-29] MEDS ORDERED: Furosemide 20 MG/2 ML VIAL IVP ONE (15:23)
[2018-11-30] MEDS: Levalbuterol Neb 1.25 MG/3 ML IH SCH ×7 (00:02→23:44)
[2018-11-30] MEDS: Artificial Tears SOLN 15 ML BOTTLE BOTH EYES SCH ×6 (00:37→21:16)
[2018-11-30] MEDS: MethylPREDNISolone 40 MG/ML VIAL IVP SCH ×3 (00:39→17:20)
[2018-11-30] MEDS: Piperacillin/Tazobactam 3.375 GM in 0.9 % Sodium Chloride Mini Bag 100 ML IVPB SCH ×3 (00:41→17:21)
[2018-11-30] MEDS: *HR* Metoprolol 5 MG/5 ML VIAL IVP SCH ×4 (00:41→17:20)
[2018-11-30] MEDS: Valproic Acid INJ 250 MG in 0.9 % Sodium Chloride 100 ML IVPB SCH ×4 (02:55→21:14)
[2018-11-30 05:08] LABS: ABG Base Excess 0 mEq/L (-2 to 3); ABG HCO3 27 mEq/L (21-27); ABG Oxygen Saturation 90 % (95-98); ABG PCO2 56 mmHg (35-45); ABG PO2 67 mmHg (85-104); ABG TCO2 29 mEq/L (20-26); Blood Gas Modality ASSIST CONTROL; Blood Gas VT 450 cc
[2018-11-30] MEDS: Heparin 25,000 UNIT/250 ML D5W 25,000 UNIT/250 ML IV.SOLN IVC SCH (05:34)
[2018-11-30] MEDS: Doxycycline 100 MG in 0.9 % Sodium Chloride Mini Bag 100 ML IVPB SCH (05:39)
[2018-11-30] MEDS: Amiodarone Premix 360 MG/200 ML BAG IVC SCH (05:42)
[2018-11-30] MEDS: Pantoprazole 40 MG VIAL IVP SCH (05:44)
[2018-11-30] MEDS: Budesonide/Formoterol 160/4.5 1 PUFF INH IH SCH ×2 (07:17→19:28)
[2018-11-30 07:24] LABS: Basophils # 0.1 K/mcL (0.0-0.2); Basophils % 0.7 %; Hematocrit 36.2 % (37.5-50.1); Hemoglobin 11.4 g/dL (12.9-16.9); Lymphocytes # 0.3 K/mcL (0.6-4.6); Lymphocytes % 4.5 %; Mean Corpuscular HGB Conc 31.5 g/dL (31.6-35.5); Mean Corpuscular Hemoglobin 28.8 pg (28.0-33.3); Mean Corpuscular Volume 91.4 fL (83.0-100.0); Mean Platelet Volume 10.5 fL (9.4-12.4); Monocytes # 0.3 K/mcL (0.0-1.3); Monocytes % 3.7 %; Neutrophils # 6.3 K/mcL (1.6-8.9); Platelet Count 300 K/mcL (140-400); Red Blood Count 3.96 M/mcL (4.19-5.50); Red Cell Distribution Width 15.5 % (11.5-14.5); Segmented Neutrophils % 87.1 %; White Blood Count 7.3 K/mcL (4.3-11.1)
[2018-11-30 07:43] LABS: Calcium 9.1 mg/dL (8.6-10.3); Potassium 4.7 mEq/L (3.5-5.1)
[2018-11-30] MEDS: Chlorhexidine Rinse 15 ML MOUTHWASH MM SCH ×2 (08:25→21:09)
[2018-11-30] MEDS: Docusate Oral Soln 100 MG/10 ML UDC GTUBE SCH ×2 (08:25→21:09)
[2018-11-30] MEDS: Norepinephrine 4 MG in 0.9 % Sodium Chloride 250 ML IVC SCH (08:26)
[2018-11-30] MEDS ORDERED: Calcium Gluconate 1gm/50mL 1 GM/50 ML BAG IVPB PRN (08:54)
[2018-11-30] MEDS ORDERED: Potassium Chloride 40 MEQ/200 ML BAG IVPB PRN (08:59)
[2018-11-30] MEDS ORDERED: Potassium Phosphate 44 MEQ in 0.9 % Sodium Chloride 250 ML IVPB PRN (08:59)
[2018-11-30] MEDS: *HR* Heparin 5,000 UNIT/ML VIAL SQ SCH ×2 (14:12→21:02)
[2018-11-30] MEDS ORDERED: 0.9 % Sodium Chloride 500 ML ONE (15:37)
[2018-11-30] MEDS: Albumin 25% 25gram/100mL 25 GM/100 ML IV.SOLN IVPB SCH (18:07)
[2018-11-30] MEDS: *HR* Rocuronium Bromide 50 MG/5 ML VIAL IVP PRN (21:00)
[2018-11-30] MEDS: Furosemide 20 MG/2 ML VIAL IVP SCH (21:05)
[2018-12-01] MEDS: *HR* Metoprolol 5 MG/5 ML VIAL IVP SCH ×5 (00:14→23:39)
[2018-12-01] MEDS: MethylPREDNISolone 40 MG/ML VIAL IVP SCH (00:15)
[2018-12-01] MEDS: *HR* Rocuronium Bromide 50 MG/5 ML VIAL IVP PRN ×3 (00:20→10:30)
[2018-12-01] MEDS: Piperacillin/Tazobactam 3.375 GM in 0.9 % Sodium Chloride Mini Bag 100 ML IVPB SCH ×4 (00:22→23:38)
[2018-12-01] MEDS: Artificial Tears SOLN 15 ML BOTTLE BOTH EYES SCH ×7 (00:24→23:49)
[2018-12-01] MEDS: Valproic Acid INJ 250 MG in 0.9 % Sodium Chloride 100 ML IVPB SCH ×4 (02:30→20:23)
[2018-12-01] MEDS: Levalbuterol Neb 1.25 MG/3 ML IH SCH ×6 (03:52→23:56)
[2018-12-01 04:25] LABS: ABG Base Excess 4 mEq/L (-2 to 3); ABG HCO3 31 mEq/L (21-27); ABG Oxygen Saturation 93 % (95-98); ABG PCO2 58 mmHg (35-45); ABG PH 7.34 pH Units (7.32-7.45); ABG PO2 73 mmHg (85-104); ABG TCO2 33 mEq/L (20-26); Blood Gas Modality ASSIST CONTROL; Blood Gas VT 450 cc
[2018-12-01 04:46] LABS: Influenza A PCR Body Fluid NOT DETECTED; Influenza B PCR Body Fluid NOT DETECTED; RVP Body Fluid Source BAL LLL
[2018-12-01 04:47] LABS: Influenza A PCR Body Fluid NOT DETECTED; Influenza B PCR Body Fluid NOT DETECTED; RVP Body Fluid Source BAL RLL
[2018-12-01] MEDS: *HR* Heparin 5,000 UNIT/ML VIAL SQ SCH ×3 (05:20→20:18)
[2018-12-01] MEDS: Furosemide 20 MG/2 ML VIAL IVP SCH ×2 (05:23→20:12)
[2018-12-01 05:29] LABS: Hematocrit 38.3 % (37.5-50.1); Hemoglobin 12.4 g/dL (12.9-16.9); Mean Corpuscular HGB Conc 32.4 g/dL (31.6-35.5); Mean Corpuscular Hemoglobin 29.5 pg (28.0-33.3); Mean Platelet Volume 10.5 fL (9.4-12.4); Platelet Count 321 K/mcL (140-400); Red Blood Count 4.21 M/mcL (4.19-5.50); Red Cell Distribution Width 15.5 % (11.5-14.5); White Blood Count 7.3 K/mcL (4.3-11.1)
[2018-12-01 05:46] LABS: Albumin 3.1 g/dL (3.5-5.7); BUN/Creatinine Ratio 47 (6-26); Blood Urea Nitrogen 62 mg/dL (8-23); Calcium 9.4 mg/dL (8.6-10.3); Carbon Dioxide 28 mEq/L (23-29); Chloride 108 mEq/L (98-107); Glucose 99 mg/dL (70-105); Magnesium 2.6 mg/dL (1.6-2.6); Osmolality,Calculated 306 (280-300); Potassium 4.7 mEq/L (3.5-5.1); Sodium 139 mEq/L (136-145); eGFR For African Americans > 60 (> 60); eGFR For Non-African Americans 54 (> 60)
[2018-12-01 05:58] LABS: Anisocytosis 1+ (Not Present); Lymphocytes # 0.4 K/mcL (0.6-4.6); Monocytes # 0.3 K/mcL (0.0-1.3); Neutrophils # 6.6 K/mcL (1.6-8.9); Platelet Estimate Normal (Normal); Poikilocytosis 1+ (Not Present)
[2018-12-01] MEDS: Albumin 25% 25gram/100mL 25 GM/100 ML IV.SOLN IVPB SCH ×2 (06:31→16:52)
[2018-12-01] MEDS: Budesonide/Formoterol 160/4.5 1 PUFF INH IH SCH ×2 (07:45→19:43)
[2018-12-01] MEDS: Norepinephrine 4 MG in 0.9 % Sodium Chloride 250 ML IVC SCH ×2 (08:29→10:35)
[2018-12-01 08:31] LABS: ABG Base Excess 4 mEq/L (-2 to 3); ABG HCO3 31 mEq/L (21-27); ABG Oxygen Saturation 94 % (95-98); ABG PCO2 54 mmHg (35-45); ABG PH 7.36 pH Units (7.32-7.45); ABG PO2 76 mmHg (85-104); ABG TCO2 33 mEq/L (20-26); Blood Gas Modality ASSIST CONTROL; Blood Gas VT 550 cc
[2018-12-01] MEDS: Docusate Oral Soln 100 MG/10 ML UDC GTUBE SCH ×2 (08:33→20:22)
[2018-12-01] MEDS: Chlorhexidine Rinse 15 ML MOUTHWASH MM SCH ×2 (08:34→20:14)
[2018-12-01] MEDS: Pantoprazole 40 MG VIAL IVP SCH (08:34)
[2018-12-01 09:45] LABS: RSV PCR Body Fluid NOT DETECTED
[2018-12-01] MEDS: methylPREDNISolone 125 MG/2 ML VIAL IVP SCH ×2 (15:53→23:42)
[2018-12-01] MEDS: Midazolam HCl 100 MG in 0.9 % Sodium Chloride 80 ML IVC SCH (20:23)
[2018-12-02] MEDS: Valproic Acid INJ 250 MG in 0.9 % Sodium Chloride 100 ML IVPB SCH ×4 (01:48→21:32)
[2018-12-02] MEDS: Artificial Tears SOLN 15 ML BOTTLE BOTH EYES SCH ×5 (03:16→21:32)
[2018-12-02] MEDS: Levalbuterol Neb 1.25 MG/3 ML IH SCH ×6 (03:44→23:24)
[2018-12-02 04:32] LABS: ABG Base Excess 7 mEq/L (-2 to 3); ABG HCO3 33 mEq/L (21-27); ABG Oxygen Saturation 92 % (95-98); ABG PCO2 53 mmHg (35-45); ABG PO2 66 mmHg (85-104); ABG TCO2 35 mEq/L (20-26); Blood Gas Modality AF; Blood Gas VT 550 cc
[2018-12-02 04:50] LABS: BUN/Creatinine Ratio 48 (6-26); Blood Urea Nitrogen 64 mg/dL (8-23); Calcium 9.3 mg/dL (8.6-10.3); Carbon Dioxide 30 mEq/L (23-29); Chloride 107 mEq/L (98-107); Glucose 99 mg/dL (70-105); Osmolality,Calculated 318 (280-300); Potassium 4.7 mEq/L (3.5-5.1); Sodium 145 mEq/L (136-145); eGFR For African Americans > 60 (> 60); eGFR For Non-African Americans 53 (> 60)
[2018-12-02 04:52] LABS: Basophils % 0.3 %; Hemoglobin 11.2 g/dL (12.9-16.9); Immature Granulocytes % 2.9 % (0-4); Lymphocytes # 0.3 K/mcL (0.6-4.6); Lymphocytes % 4.3 %; Mean Corpuscular Hemoglobin 28.8 pg (28.0-33.3); Mean Platelet Volume 11.2 fL (9.4-12.4); Monocytes # 0.2 K/mcL (0.0-1.3); Monocytes % 2.8 %; Neutrophils # 5.8 K/mcL (1.6-8.9); Platelet Count 230 K/mcL (140-400); Red Blood Count 3.89 M/mcL (4.19-5.50); Red Cell Distribution Width 15.5 % (11.5-14.5); Segmented Neutrophils % 89.7 %; White Blood Count 6.5 K/mcL (4.3-11.1)
[2018-12-02] MEDS: *HR* Metoprolol 5 MG/5 ML VIAL IVP SCH ×3 (05:38→17:04)
[2018-12-02] MEDS: *HR* Heparin 5,000 UNIT/ML VIAL SQ SCH ×3 (05:41→21:42)
[2018-12-02] MEDS: Albumin 25% 25gram/100mL 25 GM/100 ML IV.SOLN IVPB SCH ×2 (05:43→17:04)
[2018-12-02] MEDS: Furosemide 20 MG/2 ML VIAL IVP SCH ×2 (06:53→18:05)
[2018-12-02] MEDS: Budesonide/Formoterol 160/4.5 1 PUFF INH IH SCH ×2 (07:31→19:43)
[2018-12-02] MEDS: Docusate Oral Soln 100 MG/10 ML UDC GTUBE SCH ×2 (08:42→21:35)
[2018-12-02] MEDS: Chlorhexidine Rinse 15 ML MOUTHWASH MM SCH ×2 (08:43→21:34)
[2018-12-02] MEDS: Pantoprazole 40 MG VIAL IVP SCH (08:43)
[2018-12-02] MEDS: methylPREDNISolone 125 MG/2 ML VIAL IVP SCH ×2 (08:43→16:08)
[2018-12-02] MEDS: Piperacillin/Tazobactam 3.375 GM in 0.9 % Sodium Chloride Mini Bag 100 ML IVPB SCH ×2 (08:44→16:08)
[2018-12-02] MEDS: *HR* Rocuronium Bromide 50 MG/5 ML VIAL IVP PRN ×3 (08:58→13:20)
[2018-12-02] MEDS: Erythromycin Susp 200 MG/5 ML UDC GTUBE SCH ×2 (13:21→21:34)
[2018-12-02 19:12] LABS: HSV Source BAL RLL
[2018-12-02 19:14] LABS: HSV Source BAL LLL
[2018-12-02] MEDS: Midazolam HCl 100 MG in 0.9 % Sodium Chloride 80 ML IVC SCH (21:36)
[2018-12-03] MEDS: Artificial Tears SOLN 15 ML BOTTLE BOTH EYES SCH ×7 (00:27→23:53)
[2018-12-03] MEDS: *HR* Metoprolol 5 MG/5 ML VIAL IVP SCH ×5 (00:33→23:54)
[2018-12-03] MEDS: methylPREDNISolone 125 MG/2 ML VIAL IVP SCH ×4 (00:34→23:53)
[2018-12-03] MEDS: Piperacillin/Tazobactam 3.375 GM in 0.9 % Sodium Chloride Mini Bag 100 ML IVPB SCH ×4 (00:36→23:53)
[2018-12-03] MEDS: Valproic Acid INJ 250 MG in 0.9 % Sodium Chloride 100 ML IVPB SCH ×5 (01:28→23:53)
[2018-12-03] MEDS: Levalbuterol Neb 1.25 MG/3 ML IH SCH ×6 (03:38→23:33)
[2018-12-03] MEDS: *HR* Rocuronium Bromide 50 MG/5 ML VIAL IVP PRN ×2 (04:27→06:19)
[2018-12-03 04:37] LABS: ABG Base Excess 15 mEq/L (-2 to 3); ABG HCO3 42 mEq/L (21-27); ABG Oxygen Saturation 98 % (95-98); ABG PCO2 64 mmHg (35-45); ABG PH 7.43 pH Units (7.32-7.45); ABG PO2 107 mmHg (85-104); ABG TCO2 44 mEq/L (20-26); Blood Gas Modality ASSIST CONTROL; Blood Gas VT 550 cc
[2018-12-03] MEDS: Erythromycin Susp 200 MG/5 ML UDC GTUBE SCH ×3 (04:40→20:12)
[2018-12-03] MEDS: Albumin 25% 25gram/100mL 25 GM/100 ML IV.SOLN IVPB SCH (04:45)
[2018-12-03] MEDS: *HR* Heparin 5,000 UNIT/ML VIAL SQ SCH ×3 (04:47→22:39)
[2018-12-03 05:35] LABS: Basophils % 0.4 %; Hematocrit 35.1 % (37.5-50.1); Immature Granulocytes % 3.8 % (0-4); Lymphocytes # 0.3 K/mcL (0.6-4.6); Lymphocytes % 4.3 %; Mean Corpuscular HGB Conc 31.3 g/dL (31.6-35.5); Mean Corpuscular Hemoglobin 28.6 pg (28.0-33.3); Mean Corpuscular Volume 91.2 fL (83.0-100.0); Mean Platelet Volume 11.2 fL (9.4-12.4); Monocytes # 0.4 K/mcL (0.0-1.3); Monocytes % 5.3 %; Neutrophils # 6.9 K/mcL (1.6-8.9); Platelet Count 188 K/mcL (140-400); Red Blood Count 3.85 M/mcL (4.19-5.50); Red Cell Distribution Width 15.3 % (11.5-14.5); Segmented Neutrophils % 86.2 %
[2018-12-03 05:58] LABS: BUN/Creatinine Ratio 51 (6-26); Blood Urea Nitrogen 61 mg/dL (8-23); Calcium 9.9 mg/dL (8.6-10.3); Carbon Dioxide 36 mEq/L (23-29); Chloride 104 mEq/L (98-107); Glucose 107 mg/dL (70-105); Osmolality,Calculated 324 (280-300); Potassium 4.7 mEq/L (3.5-5.1); Sodium 148 mEq/L (136-145); eGFR For African Americans > 60 (> 60); eGFR For Non-African Americans > 60 (> 60)
[2018-12-03] MEDS: Furosemide 20 MG/2 ML VIAL IVP SCH (06:05)
[2018-12-03] MEDS: Budesonide/Formoterol 160/4.5 1 PUFF INH IH SCH ×2 (07:36→20:18)
[2018-12-03] MEDS ORDERED: Piperacillin/Tazobactam 3.375 GM VIAL ONE (07:48)
[2018-12-03] MEDS: Docusate Oral Soln 100 MG/10 ML UDC GTUBE SCH ×2 (08:05→20:12)
[2018-12-03] MEDS: Pantoprazole 40 MG VIAL IVP SCH (08:05)
[2018-12-03] MEDS: Chlorhexidine Rinse 15 ML MOUTHWASH MM SCH ×2 (08:05→20:03)
[2018-12-03] MEDS: Norepinephrine 4 MG in 0.9 % Sodium Chloride 250 ML IVC SCH (20:03)
[2018-12-03] MEDS: Midazolam HCl 100 MG in 0.9 % Sodium Chloride 80 ML IVC SCH (20:05)
[2018-12-04] MEDS: Levalbuterol Neb 1.25 MG/3 ML IH SCH ×2 (03:32→07:14)
[2018-12-04 04:10] LABS: Basophils % 0.3 %; Hematocrit 33.5 % (37.5-50.1); Hemoglobin 10.8 g/dL (12.9-16.9); Immature Granulocytes % 2.4 % (0-4); Lymphocytes # 0.4 K/mcL (0.6-4.6); Lymphocytes % 4.9 %; Mean Corpuscular HGB Conc 32.2 g/dL (31.6-35.5); Mean Corpuscular Hemoglobin 29.7 pg (28.0-33.3); Monocytes # 0.4 K/mcL (0.0-1.3); Monocytes % 4.8 %; Neutrophils # 6.8 K/mcL (1.6-8.9); Platelet Count 126 K/mcL (140-400); Red Blood Count 3.64 M/mcL (4.19-5.50); Red Cell Distribution Width 15.1 % (11.5-14.5); Segmented Neutrophils % 87.6 %; White Blood Count 7.8 K/mcL (4.3-11.1)
[2018-12-04] MEDS: Artificial Tears SOLN 15 ML BOTTLE BOTH EYES SCH (04:11)
[2018-12-04] MEDS: Erythromycin Susp 200 MG/5 ML UDC GTUBE SCH (04:16)
[2018-12-04] MEDS: *HR* Metoprolol 5 MG/5 ML VIAL IVP SCH (04:19)
[2018-12-04 04:26] LABS: BUN/Creatinine Ratio 63 (6-26); Blood Urea Nitrogen 58 mg/dL (8-23); Calcium 9.3 mg/dL (8.6-10.3); Carbon Dioxide 33 mEq/L (23-29); Chloride 107 mEq/L (98-107); Glucose 111 mg/dL (70-105); Osmolality,Calculated 319 (280-300); Potassium 3.9 mEq/L (3.5-5.1); Sodium 146 mEq/L (136-145); eGFR For African Americans > 60 (> 60); eGFR For Non-African Americans > 60 (> 60)
[2018-12-04 05:53] LABS: ABG Base Excess 10 mEq/L (-2 to 3); ABG HCO3 37 mEq/L (21-27); ABG Oxygen Saturation 95 % (95-98); ABG PCO2 63 mmHg (35-45); ABG PH 7.38 pH Units (7.32-7.45); ABG PO2 83 mmHg (85-104); ABG TCO2 39 mEq/L (20-26); Blood Gas Modality AF; Blood Gas VT 550 cc
[2018-12-04] MEDS: *HR* Heparin 5,000 UNIT/ML VIAL SQ SCH (05:59)
[2018-12-04] MEDS: Budesonide/Formoterol 160/4.5 1 PUFF INH IH SCH (07:14)
[2018-12-04] MEDS ORDERED: *HR* LORazepam 2 MG/ML VIAL IVP PRN (20:28)
[2018-12-04] MEDS ORDERED: Haloperidol Lactate 5 MG/ML VIAL IVP PRN (20:29)
[2018-12-04] MEDS ORDERED: Atropine Sulfate 1% 40 DROP/2 ML BOTTLE SL PRN (20:29)
[2018-12-05 11:08] VITALS: BP 118/47
== END 2018-12-04 13:06 | disposition expired | DRG 870 ==
LOC: EMEROOARM 15:04 → SUATTDRO 17:01 → 2NENU 17:01 → ICNU 11-24 02:28
PROVIDERS: ADMIT Internal Medicine; ATTEND Internal Medicine